=== PATIENT | female | born 1985 | race Caucasian/White ===

== ENCOUNTER 2017-01-02 01:46 | Emergency (ER) | payer OTHER ==
--- NOTE | ~2017-01-02 | CR20 ---
[facility] A Service of [facility] RADIOLOGY TEXT RESULTS PATIENT: BERNABE ESTEVEZ LOCATION: SED : 85 UNIT #: [id number] AGE: [address]: Kev Gillespie MD SEX: F ORDER DR: [id number] [place] [id number] MR#: [id number] #: [id number] NAME: BERNABE ESTEVEZ : 1985 SEX: F STUDY DATE/TIME: 01/02/2017 2:18 UNIT: SED ROOM: STUDY DESCRIPTION: CR Ankle Min 3 Views Lt Attending Physician: Kev Gillespie M.D. Ordering Physician: Kev Gillespie M.D. Primary Care Physician: Obey Garcia M.D. MEDICAL IMAGING REPORT This report is preliminary unless electronic signature is present. EXAM Left ankle series, 01/02/2017 HISTORY 31-year-old female in the ED complaining of left ankle pain after twisting ankle injury yesterday. TECHNIQUE Three-view left ankle series. FINDINGS The examination is negative. No fracture, dislocation or other osseous abnormality. IMPRESSION Negative left ankle series. Dictated by... David Keene M.D. THIS IS AN ELECTRONICALLY VERIFIED REPORT David Keene M.D. at 01/02/2017 6:06 AM Erik TD: 01/02/2017 03:42 JOB #: [id number] MEDICAL IMAGING REPORT Page 1 of 1
[~2017-01-02 01:46] MED LIST: ANTI-INFLAMMATORY; ARMOUR THYROID15 MG PO; CARAFATE1 G PO; FLONASE16 GM; GLUCOPHAGE500 MG PO; HYDROXYZINE HCL10 MG PO; LO LOESTRIN FE1 EACH PO; METFORMIN HCL500 M1 PO; MUSCLE RELAXER; NAPROSYN500 MG PO; NEXIUM PO; NITROFURANTOIN100 M3 PO; PREDNISONE PO; PRENATAL1 TA1 PO; PRILOSEC20 M1 PO; REGLAN10 MG PO; ROBAXIN 750750 M1 DOB; ROBAXIN500 MG PO; SINGULAIR PO; TYLENOL #3 PO; ZANTAC150 M1 PO; ZOFRAN PO; ZYRTEC10 M2 PO
[2017-01-02] MEDS ORDERED: NO MEDICATIONS (02:02)
== END 2017-01-02 03:26 | disposition home or self-care (01) ==
LOC: SED 01:46
DX: S93.402A Sprain of unspecified ligament of left ankle, initial encounter (principal); K21.9 Gastro-esophageal reflux disease without esophagitis; X50.1XXA Overexertion from prolonged static or awkward postures, initial encounter; Y92.009 Unspecified place in unspecified non-institutional (private) residence as the place of occurrence of the external cause
CPT/HCPCS: 73610; 99283